=== PATIENT | male | born 1980 | race Caucasian/White ===

== ENCOUNTER → 2019-08-19 | Outpatient (CLI) | payer OTHER ==
[~2019-08-19] MED LIST: BARIUM for suspension 96% w/w (Vanilla Silq Medium Density) PO ONE; BARIUM for suspension 98% w/w (Vanilla Silq High Density) PO ONE; PANT40TA3 PO
--- NOTE | 2019-08-19 12:05 | Diagnostic Imaging Report ---
INDICATION: Dysphasia. TECHNIQUE: The patient ingested effervescent crystals as well as thin and thick barium and imaging over the esophagus was performed in multiple obliquities. A total of 1 minute and 18 seconds of fluoroscopic time was utilized. FINDINGS: The preliminary radiograph of the chest is unremarkable. The esophagus has a fairly smooth contour. No mass or stricture is identified. No gastroesophageal reflux was demonstrated. The patient does have a small sliding-type hiatal hernia. Images of the stomach are unremarkable. IMPRESSION: Small hiatal hernia. No other significant abnormality is detected. Dictated by: Dictated on workstation # [id number]
== END ==
LOC: RAD 10:40
PROVIDERS: ATTEND Surgery
DX: K44.9 Diaphragmatic hernia without obstruction or gangrene (principal)
CPT/HCPCS: 74220

== ENCOUNTER 2019-08-20 05:42 | Outpatient (CLI) | payer OTHER ==
[~2019-08-20] VITALS: Ht 187 cm; Wt 100.0 kg
[2019-08-20] MEDS ORDERED: PANT40TA3 PO (12:03)
== END 2019-08-20 12:06 | disposition home or self-care (01) ==
LOC: PREOP 05:42
PROVIDERS: ATTEND Surgery
DX: Z01.818 Encounter for other preprocedural examination (principal)

== ENCOUNTER 2020-04-03 05:40 | Outpatient (RCR) | payer OTHER ==
[~2020-04-03] VITALS: Ht 187 cm; Wt 100.0 kg
[~2020-04-03 05:40] MED LIST changes: -BARIUM for suspension 96% w/w (Vanilla Silq Medium Density) PO ONE; -BARIUM for suspension 98% w/w (Vanilla Silq High Density) PO ONE; +CETI10CA PO; +OMG1KC PO; +SUCR1TAB36 PO
== END 2020-04-03 11:33 | disposition home or self-care (01) ==
LOC: PREOP 05:40
PROVIDERS: ATTEND Surgery
DX: Z01.812 Encounter for preprocedural laboratory examination (principal); Z20.828 Contact with and (suspected) exposure to other viral communicable diseases
CPT/HCPCS: 87635

== ENCOUNTER 2020-04-07 07:45 | Day surgery (SDC) | payer OTHER ==
[~2020-04-07] VITALS: Ht 187 cm; Wt 100.0 kg
[2020-04-07] MEDS ORDERED: LACTATED RINGERS 1,000 ML IV ONE (07:48)
[2020-04-07] MEDS ORDERED: LACTATED RINGERS 1,000 ML IV STA (07:52)
[2020-04-07] MEDS ORDERED: HURRICAINE EXT TUBE (BENZOCAINE) XX PRN (08:00)
[2020-04-07 08:01] VITALS: BP 119/86
[2020-04-07] MEDS ORDERED: MIDAZOLAM 2 MG/2 ML (VERSED) VIAL ONE (08:03)
[2020-04-07] MEDS ORDERED: proPOfol 200 MG/20 ML (DIPRIVAN) VIAL IV ONE (08:03)
--- NOTE | 2020-04-07 08:05 | Progress Note-Pre Operative ---
Pre-Operative Progress Note H&P Reviewed The H&P was reviewed, patient examined and no changes noted. Date Seen by Provider: Apr 07, 2020 Time Seen by Provider: 08:05 Date H&P Reviewed: Apr 07, 2020 Time H&P Reviewed: 08:05 Pre-Operative Diagnosis: gerd, dysphagia, EE JACOB BOSS DO Apr 07, 2020 08:05
[2020-04-07] MEDS ORDERED: HURRICAINE EXT TUBE (BENZOCAINE) ONE (08:06)
[2020-04-07 08:45] VITALS: BP 112/67
--- NOTE | 2020-04-07 08:45 | Discharge Inst-Simple/Standard ---
Discharge Inst-Standard Patient Instructions/Follow Up Plan of Care/Instructions/FU: 2 weeks Aracelis Activity as Tolerated: Yes Discharge Diet: Regular Diet JACOB BOSS DO Apr 07, 2020 08:45
--- NOTE | 2020-04-07 08:47 | Progress Note-Post Operative ---
Post-Operative Progess Note Surgeon (s)/Delicatessen Department Manager (s) Surgeon JACOB BOSS DO Delicatessen Department Manager: na Pre-Operative Diagnosis gerd, dysphagia, EE Post-Operative Diagnosis hiatal hernia, erosive esophagitis Procedure & Operative Findings Date of Procedure 04/07/20 Procedure Performed/Findings egd c biopsies Anesthesia Type per therapy administrative assistant Estimated Blood Loss Estimated blood loss (mL): none Specimens/Packing Specimens Removed antrum/ge JACOB BOSS DO Apr 07, 2020 08:47
[2020-04-07 08:50] VITALS: BP 92/69
[2020-04-07 09:10] VITALS: BP 107/77
[2020-04-07 09:20] VITALS: BP 107/77
--- NOTE | 2020-04-07 09:37 | OPERATIVE REPORT ---
DATE OF SERVICE: 04/07/2020 PREOPERATIVE DIAGNOSES: Gastroesophageal reflux disease, dysphagia, and eosinophilic esophagitis. POSTOPERATIVE DIAGNOSES: Hiatal hernia and esophagitis. PROCEDURE PERFORMED: EGD with biopsy. SURGEON: Jacob Hsu DO. ANESTHESIA: Per HOSIERY KNITTER. ESTIMATED BLOOD LOSS: None. COMPLICATIONS: None. SPECIMENS: Antrum and GE junction. INDICATIONS FOR PROCEDURE: The patient is a 39-year-old male with continued GERD symptoms and dysphagia with history of eosinophilic esophagitis and erosive esophagitis. The patient understands the risks and benefits and wishes to proceed. Consent was signed in the chart. DESCRIPTION OF PROCEDURE: The patient was taken to the endoscopy suite and placed in a left lateral recumbent position. Timeout was performed. Scope was inserted in the mouth, down the esophagus, stomach and into the duodenum without difficulty. There were no polyps, masses or ulcerations in the duodenum. Scope was slowly retracted back into the stomach, where it was further insufflated. No polyps, masses or ulcerations. Biopsy of the antrum was obtained. Scope was retroflexed noting a hiatal hernia and no other pathology. Scope was then returned to its normal position, slowly withdrawn to the distal esophagus, which had signs of erosive esophagitis. Biopsy was obtained of the GE junction. Scope was then slowly retracted back until completely removed, noting no other pathology. The patient tolerated procedure well without any complications and was taken to recovery room in a stable condition. RECOMMENDATIONS: Continue on current medications. Await biopsy results. Job ID: [id number] DocumentID: [id number] Dictated Date: 04/07/2020 08:49:57 Automotive Brake Adjuster Date: 04/07/2020 09:37:25 Dictated By: JACOB HSU DO
--- NOTE | 2020-04-07 11:17 | Anesthesia-General Post-Op ---
MAC Patient Condition Mental Status/LOC: Same as Preop Cardiovascular: Satisfactory Nausea/Vomiting: Absent Respiratory: Satisfactory Pain: Controlled Complications: Absent Post Op Complications Complications None Follow Up Care/Instructions Patient Instructions None needed. Anesthesiology Discharge Order Discharge Order Patient is doing well, no complaints, stable vital signs, no apparent adverse anesthesia problems. No complications reported per nursing. BISI WHITESIDE CRNA Apr 07, 2020 11:17
== END 2020-04-07 09:20 | disposition home or self-care (01) ==
LOC: ENDO 07:45
PROVIDERS: ATTEND Surgery
DX: K20.0 Eosinophilic esophagitis (principal); K44.9 Diaphragmatic hernia without obstruction or gangrene; F17.210 Nicotine dependence, cigarettes, uncomplicated

== ENCOUNTER 2020-08-24 19:52 | Emergency (ER) | payer OTHER, BC ==
[~2020-08-24] VITALS: Ht 188 cm; Wt 95.3 kg
[~2020-08-24 19:52] MED LIST changes: -PANT40TA3 PO; +PANT40TA52 PO
[2020-08-24 20:00] VITALS: BP 149/100
[2020-08-24] MEDS ORDERED: LIDOCAINE 1% INJ 20 ML 20 ML VIAL INJ ONE (20:15)
[2020-08-24] MEDS ORDERED: AZITHROMYCIN 250 MG TAB (ZITHROMAX) PO SCH (20:15)
[2020-08-24] MEDS ORDERED: cefTRIAXone 1,000 MG/2.86 ml vial (IM ONLY) IM SCH (20:15)
[2020-08-24 20:19] LABS: BILIRUBIN,URINE NEGATIVE (NEGATIVE); CLARITY,URINE CLEAR; COLOR,URINE YELLOW; GLUCOSE, URINE (UA) NEGATIVE (NEGATIVE); KETONES,URINE NEGATIVE (NEGATIVE); LEUKOCYTE ESTERASE ,URINE NEGATIVE (NEGATIVE); NITRITE,URINE NEGATIVE (NEGATIVE); PH,URINE 6.5 (5-9); PROTEIN,URINE NEGATIVE (NEGATIVE)
--- NOTE | 2020-08-24 20:19 | ED GU-Male ---
General Chief Complaint: Male Reproductive Stated Complaint: R SIDE TESTICLE SWELLING/ABD PAIN Nursing Triage Note: PT AMBULATE TO ROOM 03 WITH C/O RIGHT SIDE TESTICLE PAIN AND LOWER ABD PAIN. PT REPORTS PAIN STARTED X1 WEEK AGO. PT REPORTS THAT THIS HAS HAPPENED A COUPLE TIMES BEFORE AND ONLY LASTED A FEW DAYS. PT STATES THAT [facility] AND HAS NOT D[facility] THIS. PT STATES WAS SEEN FOR THIS C/O IN THE PAST AT HOSPITALS IN [place] AND DOES NOT REMEMBER WHAT THE DX WAS. Source: patient Exam Limitations: no limitations History of Present Illness Date Seen by Provider: Aug 24, 2020 Time Seen by Provider: 20:15 Initial Comments To ER with right sided testicle pain that has been present for 6 days. It has gotten progressively more tender and red in the interim. No fevers or chills. He is sexually active. Timing/Duration: constant, getting worse Severity/Quality: moderate Location: scrotal Radiation: none Activities at Onset: none Prior Genitourinary Problems: none Allergies and Home Medications Allergies Coded Allergies: Penicillins (Verified Allergy, Unknown, FROM CHILDHOOD, 03/31/20) Home Medications Cetirizine HCl 10 Mg Capsule, 10 MG PO DAILY, (Reported) Tad 3 Polyunsat Fatty Acids 1,000 Mg Cap, 1,000 MG PO DAILY, (Reported) Pantoprazole Sodium 40 Mg Tablet.dr, 40 MG PO BID, (Reported) Sucralfate 1 Gm Tablet, 1 GM PO QID Prescribed by: JACOB BOSS on 08/27/19 4206 Patient Home Medication List Home Medication List Reviewed: Yes Review of Systems Review of Systems Constitutional: see HPI; No chills, No fever EENTM: see HPI Respiratory: no symptoms reported Cardiovascular: no symptoms reported Genitourinary: see HPI; denies burning, denies discharge, denies dysuria Musculoskeletal: no symptoms reported Skin: no symptoms reported Psychiatric/Neurological: No Symptoms Reported Endocrine: No Symptoms Reported Past Gdwkvdx-Axdray-Rlzkyj Hx Patient Social History Alcohol Use: Occasionally Uses Smoking Status: Current Everyday Smoker Type Used: Cigarettes 2nd Hand Smoke Exposure: Yes Recent Infectious Disease Expo: No Recent Hopitalizations: No Immunizations Up To Date Tetanus Booster (TDap): Unknown Seasonal Allergies Seasonal Allergies: Yes Past Medical History Surgeries: Yes (BMT, SKIN BIOPSY) Vasectomy Respiratory: No Currently Using CPAP: No Currently Using BIPAP: No Cardiac: No Neurological: No Sexually Transmitted Disease: No HIV/AIDS: No Genitourinary: No Gastrointestinal: Yes Gastroesophageal Reflux Musculoskeletal: No Endocrine: No HEENT: Yes (READING GLASSES) Loss of Vision: Denies Hearing Impairment: Denies Cancer: No Psychosocial: Yes PTSD Integumentary: No Blood Disorders: No Adverse Reaction/Blood Tranf: No (N/A) Physical Exam Vital Signs Vital Signs - First Documented 08/24/20 20:00 Temp 36.8 Pulse 127 Resp 20 B/P (MAP) 149/100 (116) O2 Delivery Room Air Capillary Refill : Less Than 3 Seconds Height, Weight, BMI Height: '" Weight: lbs. oz. kg; 26.00 BMI Method: General Appearance: WD/WN, no apparent distress HEENT: PERRL/EOMI, normal ENT inspection Neck: non-tender, full range of motion Cardiovascular: regular rate, rhythm, no murmur Respiratory: no respiratory distress, no accessory muscle use Gastrointestinal: normal bowel sounds, non tender, soft Male: erythema, other (Genital exam done accompanied by Ramirez LEE. The left testicle is normal in size and nontender the right testicle is about 3-4 times larger than the left and tender. The right side of the scrotum is slightly edematous but no crepitus. It is not thickened. ) Extremities: normal range of motion, non-tender Neurologic/Psychiatric: alert, normal mood/affect, oriented x 3 Skin: normal color, warm/dry Progress/Results/Core Measures Suspected Sepsis Recent Fever Within 48 Hours: No Infection Criteria Present: None New/Unexplained Altered Menta: No Sepsis Screen: No Definite Risk SIRS Temperature: Pulse: 127 Respiratory Rate: 20 Laboratory Tests 08/24/20 20:27: White Blood Count 19.5H Blood Pressure 149 /100 Mean: 116 Laboratory Tests 08/24/20 20:27: Creatinine 1.27, Platelet Count 270 Results/Orders Lab Results Laboratory Tests Test 08/24/20 20:13 08/24/20 20:27 Range/Units Urine Color YELLOW Urine Clarity CLEAR Urine pH 6.5 5-9 Urine Specific [place] 1.015 L 1.016-1.022 Urine Protein NEGATIVE NEGATIVE Urine Glucose (UA) NEGATIVE NEGATIVE Urine Ketones NEGATIVE NEGATIVE Urine Nitrite NEGATIVE NEGATIVE Urine Bilirubin NEGATIVE NEGATIVE Urine Urobilinogen 0.2 < = 1.0 MG/DL Urine Leukocyte Esterase NEGATIVE NEGATIVE Urine RBC (Auto) NEGATIVE NEGATIVE Urine RBC NONE /HPF Urine WBC 0-2 /HPF Urine Squamous Epithelial Cells 0-2 /HPF Urine Crystals NONE /LPF Urine Bacteria NEGATIVE /HPF Urine Casts PRESENT /LPF Urine Granular Casts 2-5 H /LPF Urine Mucus NEGATIVE /LPF Urine Culture Indicated NO White Blood Count 19.5 H 4.3-11.0 10^3/uL Red Blood Count 5.05 4.30-5.52 10^6/uL Hemoglobin 15.7 13.3-17.7 g/dL Hematocrit 46 40-54 % Mean Corpuscular Volume 91 80-99 fL Mean Corpuscular Hemoglobin 31 25-34 pg Mean Corpuscular Hemoglobin Concent 34 32-36 g/dL Red Cell Distribution Width 11.8 10.0-14.5 % Platelet Count 270 130-400 10^3/uL Mean Platelet Volume 9.3 9.0-12.2 fL Immature Granulocyte % (Auto) 0 % Neutrophils (%) (Auto) 78 H 42-75 % Lymphocytes (%) (Auto) 15 12-44 % Monocytes (%) (Auto) 6 0-12 % Eosinophils (%) (Auto) 2 0-10 % Basophils (%) (Auto) 0 0-10 % Neutrophils # (Auto) 15.2 H 1.8-7.8 10^3/uL Lymphocytes # (Auto) 2.8 1.0-4.0 10^3/uL Monocytes # (Auto) 1.1 H 0.0-1.0 10^3/uL Eosinophils # (Auto) 0.3 0.0-0.3 10^3/uL Basophils # (Auto) 0.1 0.0-0.1 10^3/uL Immature Granulocyte # (Auto) 0.1 0.0-0.1 10^3/uL Sodium Level 142 135-145 MMOL/L Potassium Level 3.5 L 3.6-5.0 MMOL/L Chloride Level 104 98-107 MMOL/L Carbon Dioxide Level 27 21-32 MMOL/L Anion Gap 11 5-14 MMOL/L Blood Urea Nitrogen 10 7-18 MG/DL Creatinine 1.27 0.60-1.30 MG/DL Estimat Glomerular Filtration Rate > 60 BUN/Creatinine Ratio 8 Glucose Level 112 H 70-105 MG/DL Calcium Level 9.7 8.5-10.1 MG/DL C-Reactive Protein High Sensitivity 1.80 H 0.00-0.50 MG/DL My Orders Orders - AJ PAYAN APRN Ua Culture If Indicated (08/24/20 20:13) Cbc With Automated Diff (08/24/20 20:13) Hs C Reactive Protein (08/24/20 20:13) Basic Metabolic Panel (08/24/20 20:13) Neis Wagner Dna Urine Test (08/24/20 20:13) Chlamydia Trachomatis Urine (08/24/20 20:13) Ceftriaxone For Im Use (Rocephin For Im (08/24/20 20:15) Azithromycin Tablet (Zithromax Tablet) (08/24/20 20:15) Lidocaine 1% Inj 20 Ml (Xylocaine 1% Inj (08/24/20 20:15) Manual Differential (08/24/20 20:27) Ns Iv 1000 Ml (Sodium Chloride 0.9%) (08/24/20 20:45) Blood Culture (08/24/20 20:47) Lactic Acid Analyzer (08/24/20 20:47) Medications Given in ED Current Medications Medications Dose Ordered Sig/Enoc Route Start Time Stop Time Status Last Admin Dose Admin Lidocaine HCl 2.1 ml ONCE ONCE INJ 08/24/20 20:15 08/24/20 20:16 DC 08/24/20 20:23 2.1 ML Vital Signs/I&O 08/24/20 20:00 Temp 36.8 Pulse 127 Resp 20 B/P (MAP) 149/100 (116) O2 Delivery Room Air Capillary Refill : Less Than 3 Seconds Blood Pressure Mean: 116 Departure Communication (Admissions) Given the tachycardia, leukocytosis, infection in the right testicle I did recommend admission for him. He states that he cannot stay because he has to get his kids to school in the morning. He agrees to sign out AGAINST MEDICAL ADVICE. He did receive Rocephin plus Zithromax here. I will send him home with hydrocodone, send him home with a prescription for doxycycline. Rather than an outpatient ultrasound of the scrotum tomorrow he agrees to return to the emergency room shortly after noon for reevaluation and repeat CBC. Impression Primary Impression: Epididymitis Disposition: AGAINST MEDICAL ADVICE Condition: Against Medical Advice Departure-Patient Inst. Decision time for Depature: 20:18 Referrals: NO,LOCAL PHYSICIAN (PCP/Family) Primary Care Physician Patient Instructions: Epididymitis (DC) Add. Discharge Instructions: Scrotal elevation. When you are sitting down roll a towel beneath your scrotum to elevate the scrotum. Take the antibiotics as directed this is incredibly important. Take the pain medication as directed. Ice pack to the testicles. Follow-up with Dr. Smiley from urology. Return to ER tomorrow shortly after noon to have ultrasound and repeat labs done. Scripts Doxycycline Hyclate (Doxycycline Hyclate) 100 Mg Tablet 100 MG PO BID, #20 TAB 0 Refills Prov: AJ PAYAN APRN 08/24/20 Copy Copies To 1: HUDSON SMILEY MD, PETER J APRN Aug 24, 2020 20:19
[2020-08-24 20:27] LABS: BACTERIA,URINE NEGATIVE /HPF; SQUAMOUS EPITHELIAL CELL,UR 0-2 /HPF; WBC,URINE 0-2 /HPF
[2020-08-24 20:32] LABS: BASOPHILS # (AUTO) 0.1 10^3/uL (0.0-0.1); BASOPHILS % (AUTO) 0 % (0-10); EOSINOPHILS # (AUTO) 0.3 10^3/uL (0.0-0.3); EOSINOPHILS % (AUTO) 2 % (0-10); HEMATOCRIT 46 % (40-54); HEMOGLOBIN 15.7 g/dL (13.3-17.7); LYMPHOCYTES # (AUTO) 2.8 10^3/uL (1.0-4.0); LYMPHOCYTES % (AUTO) 15 % (12-44); MEAN CORPUSCULAR HEMOGLOBIN 31 pg (25-34); MEAN CORPUSCULAR HGB CONC 34 g/dL (32-36); MEAN CORPUSCULAR VOLUME 91 fL (80-99); MEAN PLATELET VOLUME 9.3 fL (9.0-12.2); MONOCYTES # (AUTO) 1.1 10^3/uL (0.0-1.0); MONOCYTES % (AUTO) 6 % (0-12); NEUTROPHILS # (AUTO) 15.2 10^3/uL (1.8-7.8); NEUTROPHILS % (AUTO) 78 % (42-75); PLATELET COUNT 270 10^3/uL (130-400); WHITE BLOOD COUNT 19.5 10^3/uL (4.3-11.0)
[2020-08-24 20:41] LABS: CHLORIDE 104 MMOL/L (98-107); POTASSIUM 3.5 MMOL/L (3.6-5.0); SODIUM 142 MMOL/L (135-145)
[2020-08-24 20:42] LABS: CALCIUM 9.7 MG/DL (8.5-10.1)
[2020-08-24 20:43] LABS: GLUCOSE 112 MG/DL (70-105)
[2020-08-24 20:45] LABS: CARBON DIOXIDE 27 MMOL/L (21-32)
[2020-08-24] MEDS ORDERED: NS IV 1000 ML 1,000 ML IV SCH (20:45)
[2020-08-24 20:47] LABS: CREATININE SERUM 1.27 MG/DL (0.60-1.30); GFR ESTIMATED > 60
[2020-08-24 20:48] LABS: BUN/CREATININE RATIO 8
[2020-08-24 20:58] LABS: LYMPHOCYTES % (MANUAL) 15 %; MONOCYTES % (MANUAL) 3 %; NEUTROPHILS % (MANUAL) 82 %; RBC MORPH NORMAL
[2020-08-24] MEDS ORDERED: DOXY100T2 PO (20:58)
[2020-08-24] MEDS ORDERED: RX-HYDROCODONE/APAP 5/325 MG #4 TAB PK PO PRN (21:15)
== END 2020-08-24 21:08 | disposition left against medical advice (07) ==
LOC: EDUNIT# 19:52 → ER 19:54
DX: N45.1 Epididymitis (principal); K21.9 Gastro-esophageal reflux disease without esophagitis; F17.210 Nicotine dependence, cigarettes, uncomplicated; Z88.0 Allergy status to penicillin
CPT/HCPCS: 36415; 80048; 81000; 85007; 85027; 86141; 87491; 87591

== ENCOUNTER 2020-08-25 12:19 | Observation (INO) | payer OTHER, BC ==
[~2020-08-25] VITALS: Ht 188 cm; Wt 100.2 kg
[~2020-08-25 12:19] MED LIST changes: +DOXY100T2 PO
[2020-08-25] MEDS ORDERED: cefTRIAXone FOR IV USE 1,000 MG in WATER (STERILE) FOR INJECTION 10 ML IV ONE (12:30)
[2020-08-25 12:47] LABS: BASOPHILS % (AUTO) 0 % (0-10); EOSINOPHILS # (AUTO) 0.1 10^3/uL (0.0-0.3); EOSINOPHILS % (AUTO) 0 % (0-10); HEMATOCRIT 41 % (40-54); HEMOGLOBIN 14.1 g/dL (13.3-17.7); LYMPHOCYTES # (AUTO) 2.9 10^3/uL (1.0-4.0); LYMPHOCYTES % (AUTO) 17 % (12-44); MEAN CORPUSCULAR HEMOGLOBIN 32 pg (25-34); MEAN CORPUSCULAR HGB CONC 35 g/dL (32-36); MEAN CORPUSCULAR VOLUME 91 fL (80-99); MEAN PLATELET VOLUME 9.6 fL (9.0-12.2); MONOCYTES # (AUTO) 0.9 10^3/uL (0.0-1.0); MONOCYTES % (AUTO) 5 % (0-12); NEUTROPHILS # (AUTO) 13.4 10^3/uL (1.8-7.8); NEUTROPHILS % (AUTO) 77 % (42-75); PLATELET COUNT 252 10^3/uL (130-400); WHITE BLOOD COUNT 17.4 10^3/uL (4.3-11.0)
--- NOTE | 2020-08-25 12:56 | ED GU-Male ---
General Chief Complaint: - Urinary Stated Complaint: F/U SWOLLEN TESTICLES Nursing Triage Note: R testicle swelling Source: patient Exam Limitations: no limitations History of Present Illness Date Seen by Provider: Aug 25, 2020 Time Seen by Provider: 12:54 Initial Comments To ER with reports of the right testicle swelling. He was seen here last night. Testicle swelling on the right has been present for about 5 to 6 days. He had a 19,000 white count but left AMA as he had to take his kids to school this morning. He was given 1 g of Rocephin. Comes back today for recheck as instructed. Timing/Duration: constant Severity/Quality: moderate Location: scrotal Radiation: none Activities at Onset: none Prior Genitourinary Problems: none Allergies and Home Medications Allergies Coded Allergies: Penicillins (Verified Allergy, Unknown, FROM CHILDHOOD, 03/31/20) Home Medications Cetirizine HCl 10 Mg Capsule, 10 MG PO DAILY, (Reported) Doxycycline Hyclate 100 Mg Tablet, 100 MG PO BID Prescribed by: AJ PAYAN on 08/24/202057 [place] 3 Polyunsat Fatty Acids 1,000 Mg Cap, 1,000 MG PO DAILY, (Reported) Pantoprazole Sodium 40 Mg Tablet.dr, 40 MG PO BID, (Reported) Sucralfate 1 Gm Tablet, 1 GM PO QID Prescribed by: JACOB BOSS on 08/27/19 1358 Patient Home Medication List Home Medication List Reviewed: Yes Review of Systems Review of Systems Constitutional: see HPI, chills; No fever EENTM: see HPI Respiratory: no symptoms reported Cardiovascular: no symptoms reported Genitourinary: see HPI Musculoskeletal: no symptoms reported Skin: no symptoms reported Psychiatric/Neurological: No Symptoms Reported Endocrine: No Symptoms Reported Past Voozlac-Svpdix-Uhhjsz Hx Patient Social History Alcohol Use: Occasionally Uses Smoking Status: Current Everyday Smoker Type Used: Cigarettes 2nd Hand Smoke Exposure: Yes Recent Infectious Disease Expo: No Recent Hopitalizations: No Immunizations Up To Date Tetanus Booster (TDap): Unknown Seasonal Allergies Seasonal Allergies: Yes Past Medical History Surgeries: Yes (BMT, SKIN BIOPSY) Vasectomy Respiratory: No Currently Using CPAP: No Currently Using BIPAP: No Cardiac: No Neurological: No Sexually Transmitted Disease: No HIV/AIDS: No Genitourinary: No Gastrointestinal: Yes Gastroesophageal Reflux Musculoskeletal: No Endocrine: No HEENT: Yes (READING GLASSES) Loss of Vision: Denies Hearing Impairment: Denies Cancer: No Psychosocial: Yes PTSD Integumentary: No Blood Disorders: No Adverse Reaction/Blood Tranf: No (N/A) Physical Exam Vital Signs Vital Signs - First Documented 08/25/20 12:35 Temp 36.8 Pulse 108 Resp 18 B/P (MAP) 122/84 (97) O2 Delivery Room Air Capillary Refill : Less Than 3 Seconds Height, Weight, BMI Height: '" Weight: lbs. oz. kg; 27.00 BMI Method: General Appearance: WD/WN, no apparent distress Neck: non-tender, full range of motion Cardiovascular: no murmur, tachycardia Respiratory: normal breath sounds, no respiratory distress, no accessory muscle use Gastrointestinal: normal bowel sounds, soft Extremities: normal range of motion, non-tender Neurologic/Psychiatric: alert, normal mood/affect, oriented x 3 Skin: normal color, warm/dry Progress/Results/Core Measures Suspected Sepsis Recent Fever Within 48 Hours: No Infection Criteria Present: Suspected New Infection New/Unexplained Altered Menta: No Sepsis Screen: No Definite Risk SIRS Temperature: Pulse: 108 Respiratory Rate: 18 Laboratory Tests 08/25/20 12:40: White Blood Count 17.4H Blood Pressure 122 /84 Mean: 97 Laboratory Tests 08/25/20 12:40: Platelet Count 252 Results/Orders Lab Results Laboratory Tests Test 08/25/20 12:40 Range/Units White Blood Count 17.4 H 4.3-11.0 10^3/uL Red Blood Count 4.47 4.30-5.52 10^6/uL Hemoglobin 14.1 13.3-17.7 g/dL Hematocrit 41 40-54 % Mean Corpuscular Volume 91 80-99 fL Mean Corpuscular Hemoglobin 32 25-34 pg Mean Corpuscular Hemoglobin Concent 35 32-36 g/dL Red Cell Distribution Width 11.9 10.0-14.5 % Platelet Count 252 130-400 10^3/uL Mean Platelet Volume 9.6 9.0-12.2 fL Immature Granulocyte % (Auto) 1 % Neutrophils (%) (Auto) 77 H 42-75 % Lymphocytes (%) (Auto) 17 12-44 % Monocytes (%) (Auto) 5 0-12 % Eosinophils (%) (Auto) 0 0-10 % Basophils (%) (Auto) 0 0-10 % Neutrophils # (Auto) 13.4 H 1.8-7.8 10^3/uL Lymphocytes # (Auto) 2.9 1.0-4.0 10^3/uL Monocytes # (Auto) 0.9 0.0-1.0 10^3/uL Eosinophils # (Auto) 0.1 0.0-0.3 10^3/uL Basophils # (Auto) 0.0 0.0-0.1 10^3/uL Immature Granulocyte # (Auto) 0.1 0.0-0.1 10^3/uL Neutrophils % (Manual) 72 % Lymphocytes % (Manual) 12 % Monocytes % (Manual) 4 % Basophils % (Manual) 1 % Reactive Lymphocytes 11 % Blood Morphology Comment NORMAL C-Reactive Protein High Sensitivity 11.37 H 0.00-0.50 MG/DL My Orders Orders - AJ PAYAN APRN Cbc With Automated Diff (08/25/20 12:21) Ed Iv/Invasive Line Start (08/25/20 12:21) Ceftriaxone For Iv Use (Rocephin For I (08/25/20 12:30) Us Scrotum (Testicle) [id number] (08/25/20 12:21) Ns Iv 1000 Ml (Sodium Chloride 0.9%) (08/25/20 13:00) Ketorolac Injection (Toradol Injection) (08/25/20 13:00) Ceftriaxone For Iv Use (Rocephin For I (08/25/20 13:00) Manual Differential (08/25/20 12:40) Hs C Reactive Protein (08/25/20 12:56) Levofloxacin Tablet (Levaquin Tablet) (08/25/20 13:45) Medications Given in ED Current Medications Medications Dose Ordered Sig/Enoc Route Start Time Stop Time Status Last Admin Dose Admin Ceftriaxone Sodium 2000 mg/ Sterile Water 20 ml @ 240 mls/hr ONCE ONCE IV 08/25/20 13:00 08/25/20 13:04 DC 08/25/20 13:35 240 MLS/HR Ketorolac Tromethamine 15 mg ONCE ONCE IVP 08/25/20 13:00 08/25/20 13:01 DC 08/25/20 12:51 15 MG Vital Signs/I&O 08/25/20 12:35 Temp 36.8 Pulse 108 Resp 18 B/P (MAP) 122/84 (97) O2 Delivery Room Air Capillary Refill : Less Than 3 Seconds Blood Pressure Mean: 97 Diagnostic Imaging Diagonstic Imaging: Ultrasound Comments NAME: BROOKS HARDY [facility] REC#: [id number] PT STATUS: REG ER : 1980 PHYSICIAN: AJ PAYAN APRN ADMIT DATE: 08/25/20/ER Draft Date of Exam:08/25/20 US SCROTUM (Testicle) [id number] PROCEDURE: US Scrotum. TECHNIQUE: Multiple real-time grayscale images were obtained over the scrotum in various projections bilaterally. INDICATION: Right scrotal pain, symptoms of one week's duration. FINDINGS: The right-sided epididymis is prominent somewhat hypoechoic and abnormally hypervascularized. The right testicular parenchyma appeared normal on grayscale imaging but shows abnormal elevated color Doppler blood flow. There is a small simple right-sided hydrocele without evidence for pyocele or abscess. The left scrotal contents normal aside from a benign epididymal head cyst. IMPRESSION: Findings most suggestive of right-sided epididymoorchitis with a likely reactive small simple right hydrocele. Dictated on workstation # [id number] Dict: 08/25/20 1321 Trans: 08/25/20 1326 [id number] Interpreted by: ANUSHA SUGGS Electronically signed by: Departure Communication (Admissions) Family Conversation Spoke with Dr. Garcia, recommends admission but if the patient does not want to be admitted then the next recommendation would be to go home with scrotal support, ice pack, bedrest, continue the doxycycline. Relayed these recommendations to the patient. He is going to visit with his and discuss whether he wants to stay or go home. [facility]. his white count is down today from 19 yesterday but his CRP is up significantly. He denies any symptomatic improvement. 1420-okay with his and agrees to stay in the hospital. Urine gonorrhea chlamydia test pending from yesterday. Spoke With Dr. Blanchard, he agrees to admit Impression Primary Impression: Epididymitis Additional Impression: Sepsis Disposition: ADMITTED INPATIENT Condition: Stable Admissions Decision to Admit Reason: Admit from ER (General) Decision to Admit/Date: Aug 25, 2020 Time/Decision to Admit Time: 14:26 Departure-Patient Inst. Referrals: NO,LOCAL PHYSICIAN (PCP/Family) Primary Care Physician AJ PAYAN APRN Aug 25, 2020 12:55
[2020-08-25] MEDS ORDERED: cefTRIAXone FOR IV USE 2,000 MG in WATER (STERILE) FOR INJECTION 20 ML IV ONE (13:00)
[2020-08-25] MEDS ORDERED: KETOROLAC 30 MG/ML VIAL IVP ONE (13:00)
[2020-08-25] MEDS ORDERED: NS IV 1000 ML 1,000 ML IV SCH (13:00)
--- NOTE | 2020-08-25 13:07 | NUR ---
REPORT GIVEN TO ALEISHA
--- NOTE | 2020-08-25 13:10 | NUR ---
report recieved by Ana LEE
--- NOTE | 2020-08-25 13:26 | Diagnostic Imaging Report ---
PROCEDURE: US Scrotum. TECHNIQUE: Multiple real-time grayscale images were obtained over the scrotum in various projections bilaterally. INDICATION: Right scrotal pain, symptoms of one week's duration. FINDINGS: The right-sided epididymis is prominent somewhat hypoechoic and abnormally hypervascularized. The right testicular parenchyma appeared normal on grayscale imaging but shows abnormal elevated color Doppler blood flow. There is a small simple right-sided hydrocele without evidence for pyocele or abscess. The left scrotal contents normal aside from a benign epididymal head cyst. IMPRESSION: Findings most suggestive of right-sided epididymoorchitis with a likely reactive small simple right hydrocele. Dictated by: Dictated on workstation # [id number]
[2020-08-25 13:45] LABS: BASOPHILS % (MANUAL) 1 %; LYMPHOCYTES % (MANUAL) 12 %; MONOCYTES % (MANUAL) 4 %; NEUTROPHILS % (MANUAL) 72 %; RBC MORPH NORMAL; REACTIVE LYMPHOCYTES 11 %
[2020-08-25] MEDS ORDERED: LEVOFLOXACIN 750 MG TAB (LEVAQUIN) PO ONE (13:45)
--- NOTE | 2020-08-25 14:58 | NUR ---
report given to Maciel LEE
--- NOTE | 2020-08-25 14:59 | NUR ---
pt denies need for anything at this time
[2020-08-25 15:30] VITALS: BP_SYST 118; BP_SYST 133; BP_DIAS 74; BP_DIAS 81
[2020-08-25] MEDS ORDERED: HYDROcodone/APAP 5 MG/325 MG (LORTAB) TAB PO PRN (16:00)
[2020-08-25] MEDS ORDERED: ENOXAPARIN 40 MG/0.4 ML (LOVENOX) SYR SC SCH (16:15)
[2020-08-25] MEDS ORDERED: ACETAMINOPHEN 325 MG TABLET PO PRN (16:15)
[2020-08-25] MEDS ORDERED: BISACODYL 10 MG SUPP (DULCOLAX) PR PRN (16:15)
[2020-08-25] MEDS ORDERED: MELATONIN 3 MG TABLET PO PRN (16:15)
[2020-08-25] MEDS ORDERED: cefTRIAXone FOR IV USE 2,000 MG in WATER (STERILE) FOR INJECTION 20 ML IV SCH (16:15)
[2020-08-25] MEDS ORDERED: polyethylene glycoL POWDER 17 GM (MIRALAX) PACK PO PRN (16:15)
[2020-08-25] MEDS ORDERED: ONDANSETRON 4 MG (ZOFRAN) ORAL DISSOLVE TAB PO PRN (16:15)
[2020-08-25] MEDS ORDERED: diphenhydrAMINE 25 MG TAB (BENADRYL) PO PRN (16:15)
[2020-08-25] MEDS ORDERED: ONDANSETRON 4 MG/2 ML (SDV) Z0FRAN IV PRN (16:15)
[2020-08-25] MEDS ORDERED: ANTACID SUSP 30 ML UDC (MYLANTA) PO PRN (16:15)
[2020-08-25] MEDS ORDERED: CATHETER FLUSH 10 ML SYR IV PRN (16:30)
[2020-08-25] MEDS: LACTATED RINGERS 1,000 ML IV SCH (16:52)
[2020-08-25 20:07] VITALS: BP 116/80
[2020-08-25] MEDS ORDERED: CETIRIZINE 10 MG TAB PO SCH (21:00)
[2020-08-25] MEDS: SENNOSIDES 8.6 MG (SENOKOT) TAB PO SCH (21:10)
[2020-08-25] MEDS: DOCUSATE SODIUM 100 MG (COLACE) CAP PO SCH (21:10)
[2020-08-26] VITALS: BP 108/67
[2020-08-26] MEDS: LACTATED RINGERS 1,000 ML IV SCH ×3 (00:56→09:02)
[2020-08-26 04:00] VITALS: BP 120/85
[2020-08-26 06:15] LABS: BASOPHILS % (AUTO) 1 % (0-10); EOSINOPHILS # (AUTO) 0.3 10^3/uL (0.0-0.3); EOSINOPHILS % (AUTO) 4 % (0-10); HEMATOCRIT 35 % (40-54); HEMOGLOBIN 12.2 g/dL (13.3-17.7); LYMPHOCYTES # (AUTO) 2.6 10^3/uL (1.0-4.0); LYMPHOCYTES % (AUTO) 32 % (12-44); MEAN CORPUSCULAR HEMOGLOBIN 31 pg (25-34); MEAN CORPUSCULAR HGB CONC 35 g/dL (32-36); MEAN CORPUSCULAR VOLUME 91 fL (80-99); MEAN PLATELET VOLUME 9.5 fL (9.0-12.2); MONOCYTES # (AUTO) 0.6 10^3/uL (0.0-1.0); MONOCYTES % (AUTO) 8 % (0-12); NEUTROPHILS # (AUTO) 4.5 10^3/uL (1.8-7.8); NEUTROPHILS % (AUTO) 56 % (42-75); PLATELET COUNT 218 10^3/uL (130-400); WHITE BLOOD COUNT 8.1 10^3/uL (4.3-11.0)
[2020-08-26 06:24] LABS: ALBUMIN 3.3 GM/DL (3.2-4.5); CHLORIDE 109 MMOL/L (98-107); POTASSIUM 3.9 MMOL/L (3.6-5.0); SODIUM 140 MMOL/L (135-145)
[2020-08-26 06:26] LABS: CALCIUM 8.3 MG/DL (8.5-10.1)
[2020-08-26 06:27] LABS: GLUCOSE 102 MG/DL (70-105); TOTAL PROTEIN 5.9 GM/DL (6.4-8.2)
[2020-08-26 06:28] LABS: CARBON DIOXIDE 24 MMOL/L (21-32)
[2020-08-26 06:29] LABS: BILIRUBIN,TOTAL 0.4 MG/DL (0.1-1.0)
[2020-08-26 06:30] LABS: ALKALINE PHOSPHATASE 70 U/L (40-136); CREATININE SERUM 1.11 MG/DL (0.60-1.30); GFR ESTIMATED > 60
[2020-08-26 06:31] LABS: BUN/CREATININE RATIO 10
[2020-08-26 06:33] LABS: ALANINE AMINOTRANSFERASE 41 U/L (0-55)
[2020-08-26 08:00] VITALS: BP 122/79
[2020-08-26] MEDS: SENNOSIDES 8.6 MG (SENOKOT) TAB PO SCH (08:12)
[2020-08-26] MEDS: DOCUSATE SODIUM 100 MG (COLACE) CAP PO SCH (08:12)
--- NOTE | 2020-08-26 10:05 | NUR ---
DR. SMILEY NOTIFIED OF CONSULT.
--- NOTE | 2020-08-26 10:33 | Discharge Summary ---
Discharge Summary Hospital Course Was the Problem List Reviewed?: Yes Problems/Dx: (1) Sepsis Status: Resolved (2) Acute epididymo-orchitis Status: Acute Hospital Course Date of Admission: Aug 25, 2020 at 14:21 Admission Diagnosis : Acute epididymo-orchitis Family Physician/Provider: Sweta,Local Physician Date of Discharge: 08/26/20 Discharge Diagnosis: Acute epididymo-orchitis Hospital Course: Oliver Miller is a 40-year-old male who presented with scrotal pain and swelling and was admitted with sepsis due to acute epididymo-orchitis. He was started on IV Rocephin. Urology was consulted and assisted with his care. He improved and was transitioned to oral doxycycline for which he will complete a two week course. He will follow-up with Dr. Smiley as scheduled. Labs and Pending Lab Test: Laboratory Tests 08/25/20 12:40: White Blood Count 17.4H, Red Blood Count 4.47, Hemoglobin 14.1, Hematocrit 41, Mean Corpuscular Volume 91, Mean Corpuscular Hemoglobin 32, Mean Corpuscular Hemoglobin Concent 35, Red Cell Distribution Width 11.9, Platelet Count 252, Mean Platelet Volume 9.6, Immature Granulocyte % (Auto) 1, Neutrophils (%) (Auto) 77H, Lymphocytes (%) (Auto) 17, Monocytes (%) (Auto) 5, Eosinophils (%) (Auto) 0, Basophils (%) (Auto) 0, Neutrophils # (Auto) 13.4H, Lymphocytes # (Auto) 2.9, Monocytes # (Auto) 0.9, Eosinophils # (Auto) 0.1, Basophils # (Auto) 0.0, Immature Granulocyte # (Auto) 0.1, Neutrophils % (Manual) 72, Lymphocytes % (Manual) 12, Monocytes % (Manual) 4, Basophils % (Manual) 1, Reactive Lymphocytes 11, Blood Morphology Comment NORMAL, C-Reactive Protein High Sensitivity 11.37H 08/26/20 05:50: White Blood Count 8.1, Red Blood Count 3.89L, Hemoglobin 12.2L, Hematocrit 35L, Mean Corpuscular Volume 91, Mean Corpuscular Hemoglobin 31, Mean Corpuscular Hemoglobin Concent 35, Red Cell Distribution Width 11.9, Platelet Count 218, Mean Platelet Volume 9.5, Immature Granulocyte % (Auto) 0, Neutrophils (%) (Auto) 56, Lymphocytes (%) (Auto) 32, Monocytes (%) (Auto) 8, Eosinophils (%) ( Auto) 4, Basophils (%) (Auto) 1, Neutrophils # (Auto) 4.5, Lymphocytes # (Auto) 2.6, Monocytes # (Auto) 0.6, Eosinophils # (Auto) 0.3, Basophils # (Auto) 0.0, Immature Granulocyte # (Auto) 0.0, Sodium Level 140, Potassium Level 3.9, Chloride Level 109H, Carbon Dioxide Level 24, Anion Gap 7, Blood Urea Nitrogen 11, Creatinine 1.11, Estimat Glomerular Filtration Rate > 60, BUN/Creatinine Ratio 10, Glucose Level 102, Calcium Level 8.3L, Corrected Calcium 8.9, Total Bilirubin 0.4, Aspartate Amino Transf (AST/SGOT) 20, Alanine Aminotransferase (ALT/SGPT) 41, Alkaline Phosphatase 70, Total Protein 5.9L, Albumin 3.3 Home Meds Active Doxycycline Hyclate 100 Mg Tablet 100 Mg PO BID Carafate (Sucralfate) 1 Gm Tablet 1 Gm PO QID Reported Fish Oil 1,000 mg Capsule ([place] 3 Polyunsat Fatty Acids) 1,000 Mg Cap 1,000 Mg PO DAILY Zyrtec (Cetirizine HCl) 10 Mg Capsule 10 Mg PO DAILY Pantoprazole Sodium 40 Mg Tablet. 40 Mg PO BID Assessment/Pt Instructions Take medications as prescribed. Complete her course of antibiotics even if you're feeling better. Follow-up with Dr. Smiley. Return with worsening pain, swelling, or if you feel like you're getting worse. Discharge Planning: <30 minutes discharge planning Discharge Instructions Discharge Diet: No Restrictions Activity as Tolerated: Yes Consultations Urology Discharge Physical Examination Vital Signs Vital Signs Date Time Temp Pulse Resp B/P (MAP) Pulse Ox O2 Delivery O2 Flow Rate FiO2 08/26/20 08:00 36.4 74 16 122/79 (93) 97 Room Air 08/26/20 07:25 0.00 General Appearance: No Apparent Distress, WD/WN HEENT: PERRL/EOMI, Pharynx Normal Respiratory: Lungs Clear, Normal Breath Sounds, No Respiratory Distress Cardiovascular: Regular Rate, Rhythm, No Edema, No Murmur Gastrointestinal: Normal Bowel Sounds, Soft, Tenderness (suprapubic) Extremity: Normal Inspection, Non Tender, No Pedal Edema Skin: Normal Color, Warm/Dry, Other (right testicle swollen, tender) Neurologic/Psychiatric: Alert, Oriented x3, No Motor/Sensory Deficits, Normal Mood/Affect Allergies: Coded Allergies: Penicillins (Verified Allergy, Unknown, FROM CHILDHOOD, 03/31/20) Copy Copies To 1: HUDSON SMILEY MD Discharge Summary Date of Admission Aug 25, 2020 at 14:21 Date of Discharge Discharge Date: Aug 26, 2020 Discharge Time: 10:31 Admission Diagnosis Sepsis due to acute epididymo-orchitis Consults/Procedures Consulations Urology Discharge Diagnosis (1) Sepsis Status: Resolved (2) Acute epididymo-orchitis Status: Acute JANAK RAMIREZ MD Aug 26, 2020 10:32
--- NOTE | 2020-08-26 11:23 | CONSULTATION REPORT ---
DATE OF SERVICE: 08/26/2020 ATTENDING PHYSICIAN: Dr. Blanchard. SUMMARY: After reviewing the patient's records, interviewing him and examining him and reviewing his x-rays, this is a 40-year-old white man, who presented to the emergency room twice complaining of pain and swelling in the right testicle. Yesterday, the emergency room called me. The patient was getting worse according to him. Ultrasound of the scrotum confirmed a right epididymo-orchitis, no abscess formation. His CBC at that time, white count was 17.4. His chemistry was normal except the C-reactive protein was higher than the day before at 11.37. The patient was given the choice was preference of admission for observation, he agreed. He was subsequently admitted on IV antibiotic and bed rest. Today, he is getting better. He is afebrile. His white count is down to 8.1. He is feeling better. Examination revealed the phallus . Left testicle in epididymis down and normal. The right side, the epididymis is kind of tender and firm and enlarged, but no scrotal edema. No problem for the testicle. No evidence of an abscess formation. IMPRESSION: Right epididymo-orchitis stable -- improving. RECOMMENDATIONS: May go home, but has to have complete rest for 48 hours and then gradually build his activity. Scrotal support for a week. Prescription for Vibramycin 100 mg b.i.d. for 10 days. Follow up in the office with me in 2 weeks. Come back or call or come to the emergency room with any problems. Job ID: [id number] DocumentID: [id number] Dictated Date: 08/26/2020 10:47:26 Veneer Splicer Date: 08/26/2020 11:22:54 Dictated By: HUDSON SMILEY MD
[2020-08-26] MEDS ORDERED: cefTRIAXone 1,000 MG/SWFI 10 ML IV PUSH IV SCH ×2 (13:00)
== END 2020-08-26 11:10 | disposition home or self-care (01) ==
LOC: EDUNIT# 12:19 → ER 12:20 → 4TH 14:21
PROVIDERS: ADMIT Internal Medicine; ATTEND Internal Medicine
DX: A41.9 Sepsis, unspecified organism (principal); N45.3 Epididymo-orchitis; K21.9 Gastro-esophageal reflux disease without esophagitis; F43.10 Post-traumatic stress disorder, unspecified; F17.210 Nicotine dependence, cigarettes, uncomplicated; Z79.899 Other long term (current) drug therapy; Z88.0 Allergy status to penicillin
CPT/HCPCS: 36415; 76870; 80053; 85007; 85025; 85027; 86141; G0378

== ENCOUNTER 2021-01-01 22:16 | Emergency (ER) | payer OTHER, BC ==
[~2021-01-01] VITALS: Ht 187 cm; Wt 99.7 kg
[2021-01-01] MEDS ORDERED: KETOROLAC 30 MG/ML VIAL IVP STA (22:55)
[2021-01-01] MEDS ORDERED: LACTATED RINGERS 1,000 ML IV ONE (23:00)
[2021-01-01] MEDS ORDERED: ONDANSETRON 4 MG/2 ML (SDV) Z0FRAN IVP ONE (23:00)
[2021-01-01 23:03] LABS: BASOPHILS # (AUTO) 0.1 10^3/uL (0.0-0.1); BASOPHILS % (AUTO) 1 % (0-10); EOSINOPHILS # (AUTO) 0.4 10^3/uL (0.0-0.3); EOSINOPHILS % (AUTO) 2 % (0-10); HEMATOCRIT 46 % (40-54); HEMOGLOBIN 16.2 g/dL (13.3-17.7); LYMPHOCYTES # (AUTO) 4.8 10^3/uL (1.0-4.0); LYMPHOCYTES % (AUTO) 30 % (12-44); MEAN CORPUSCULAR HEMOGLOBIN 32 pg (25-34); MEAN CORPUSCULAR HGB CONC 35 g/dL (32-36); MEAN CORPUSCULAR VOLUME 90 fL (80-99); MEAN PLATELET VOLUME 9.6 fL (9.0-12.2); MONOCYTES # (AUTO) 1.1 10^3/uL (0.0-1.0); MONOCYTES % (AUTO) 7 % (0-12); NEUTROPHILS # (AUTO) 9.7 10^3/uL (1.8-7.8); NEUTROPHILS % (AUTO) 60 % (42-75); PLATELET COUNT 287 10^3/uL (130-400); WHITE BLOOD COUNT 16.1 10^3/uL (4.3-11.0)
[2021-01-01 23:11] LABS: ALBUMIN 4.2 GM/DL (3.2-4.5); CHLORIDE 103 MMOL/L (98-107); POTASSIUM 3.4 MMOL/L (3.6-5.0); SODIUM 139 MMOL/L (135-145)
[2021-01-01 23:12] LABS: AMYLASE 43 U/L (25-125); CALCIUM 8.9 MG/DL (8.5-10.1)
[2021-01-01 23:13] LABS: GLUCOSE 130 MG/DL (70-105); TOTAL PROTEIN 6.6 GM/DL (6.4-8.2)
[2021-01-01 23:14] LABS: CARBON DIOXIDE 24 MMOL/L (21-32)
[2021-01-01 23:15] LABS: BILIRUBIN,TOTAL 0.6 MG/DL (0.1-1.0)
[2021-01-01 23:16] LABS: BAND NEUTROPHILS 0 %; BASOPHILS % (MANUAL) 0 %; EOSINOPHILS % (MANUAL) 4 %; LYMPHOCYTES % (MANUAL) 17 %; MONOCYTES % (MANUAL) 4 %; NEUTROPHILS % (MANUAL) 66 %; RBC MORPH NORMAL; REACTIVE LYMPHOCYTES 9 %
[2021-01-01 23:17] LABS: ALKALINE PHOSPHATASE 75 U/L (40-136); CREATININE SERUM 1.59 MG/DL (0.60-1.30); GFR ESTIMATED 49
[2021-01-01 23:18] LABS: BUN/CREATININE RATIO 5
[2021-01-01 23:20] LABS: ALANINE AMINOTRANSFERASE 33 U/L (0-55)
[2021-01-01 23:21] LABS: LIPASE 28 U/L (8-78)
[2021-01-01 23:29] LABS: VALPROIC ACID < 2.0 UG/ML (50.0-100.0)
[2021-01-02] MEDS ORDERED: RX-ONDANSETRON 4 MG ODT (ZOFRAN) PPK #4 PO STA (00:40)
[2021-01-02] MEDS ORDERED: TMSL.4C PO (00:44)
[2021-01-02] MEDS ORDERED: ONDA8TAB13 PO (00:44)
[2021-01-02] MEDS ORDERED: CIPR500T5 PO (00:44)
[2021-01-02] MEDS ORDERED: KETO10TA PO (00:44)
[2021-01-02] MEDS ORDERED: ACHD5005 PO (00:44)
--- NOTE | 2021-01-02 00:44 | ED Back Pain ---
General Stated Complaint: LOWER BACK PAIN,ABD PAIN Source of Information: Patient History of Present Illness Date Seen by Provider: January 01, 2021 Time Seen by Provider: 00:28 Initial Comments PT ARRIVES VIA POV FROM HOME C/O SUDDEN ONSET OF LEFT FLANK PAIN RADIATING TO SUPRAPUBIC AREA AT 2000 TONIGHT C/O NAUSEA AND DRY HEAVES NO FEVER HAS URGE TO URINATE BUT IS UNABLE TO VOID NO HISTORY OF SIMILAR HAS NOT TAKEN ANYTHING FOR PAIN Other Comments PCP: [facility] UROLOGIST: DR. SMILEY Allergies and Home Medications Allergies Coded Allergies: Penicillins (Verified Allergy, Unknown, FROM CHILDHOOD, 03/31/20) Home Medications Cetirizine HCl 10 Mg Capsule, 10 MG PO DAILY, (Reported) Ciprofloxacin HCl 500 Mg Tablet, 500 MG PO BID Prescribed by: MIRELLA MCKEON on 01/02/2143 Doxycycline Hyclate 100 Mg Tablet, 100 MG PO BID Prescribed by: AJ PAYAN on 08/24/202057 Hydrocodone/Acetaminophen 1 Each Tablet, 1 EACH PO Q4-6 HOURS PRN for PAIN Prescribed by: MIRELLA MCKEON on 01/02/2143 Ketorolac Tromethamine 10 Mg Tablet, 10 MG PO Q6H Prescribed by: MIRELLA MCKOEN on 01/02/2143 [place] 3 Polyunsat Fatty Acids 1,000 Mg Cap, 1,000 MG PO DAILY, (Reported) Ondansetron 8 Mg Tab.rapdis, 8 MG PO Q6H Prescribed by: MIRELLA MCKEON on 01/02/2143 Pantoprazole Sodium 40 Mg Tablet.dr, 40 MG PO BID, (Reported) Sucralfate 1 Gm Tablet, 1 GM PO QID Prescribed by: JACOB BOSS on 08/27/19 1358 Tamsulosin HCl 0.4 Mg Cap, 0.4 MG PO DAILY Prescribed by: MIRELLA MCKEON on 01/02/2143 Patient Home Medication List Home Medication List Reviewed: Yes Review of Systems Constitutional: no symptoms reported Respiratory: no symptoms reported Cardiovascular: no symptoms reported Gastrointestinal: see HPI, abdominal pain, nausea Genitourinary: see HPI Musculoskeletal: see HPI, back pain Skin: no symptoms reported Psychiatric/Neurological: No Symptoms Reported Past Zrftmav-Aawsmk-Fbzteg Hx Past Med/Social Hx: Reviewed and Corrections made Patient Social History Alcohol Use: Rarely Uses Drug of Choice: DENIES Smoking Status: Current Everyday Smoker Type Used: Cigarettes 2nd Hand Smoke Exposure: Yes Recent Hopitalizations: No Immunizations Up To Date Tetanus Booster (TDap): Unknown Seasonal Allergies Seasonal Allergies: Yes Past Medical History Surgeries: Yes (BMT, SKIN BIOPSY) Ear Surgery, Vasectomy Respiratory: No Currently Using CPAP: No Currently Using BIPAP: No Cardiac: No Neurological: No Sexually Transmitted Disease: No HIV/AIDS: No Genitourinary: Yes (LOW TESTOSTERONE) Gastrointestinal: Yes Gastroesophageal Reflux Musculoskeletal: No Endocrine: Yes (LOW TESTOSTERONE) HEENT: Yes (READING GLASSES; S/P BMT'S) Chronic Ear Infection Loss of Vision: Denies Hearing Impairment: Denies Cancer: No Psychosocial: Yes PTSD Integumentary: No Blood Disorders: No Adverse Reaction/Blood Tranf: No (N/A) Physical Exam Vital Signs Vital Signs - First Documented 01/01/21 22:50 Temp 35.5 Pulse 85 Resp 18 B/P (MAP) 144/100 (115) Pulse Ox 97 O2 Delivery Room Air Capillary Refill : Height, Weight, BMI Height: '" Weight: lbs. oz. kg; 26.96 BMI Method: General Appearance: WD/WN, Anxious, Other (MOANING, WALKS SLOWLY AND BENT AT WAIST, HOLDING LOWER ABDOMEN. BAREFOOT) Cardiovascular: Regular Rate, Rhythm, No Murmur Respiratory: Normal Breath Sounds, No Accessory Muscle Use, No Respiratory Distress Gastrointestinal: Normal Bowel Sounds, No Organomegaly, No Pulsatile Mass, Soft, Tenderness (SUPRAPUBIC, LLQ AND LEFT FLANK TENDERNESS) Back: CVA Tenderness (L) Extremity: Normal Inspection Neurologic/Psychiatric: Alert, Oriented x3, No Motor/Sensory Deficits, second hand paper machine II- XII Norm as Tested Skin: Normal Color, Warm/Dry; No Rash Progress/Results/Core Measures Results/Orders Lab Results Laboratory Tests Test 01/01/21 22:58 01/02/21 01:30 Range/Units White Blood Count 16.1 H 4.3-11.0 10^3/uL Red Blood Count 5.07 4.30-5.52 10^6/uL Hemoglobin 16.2 13.3-17.7 g/dL Hematocrit 46 40-54 % Mean Corpuscular Volume 90 80-99 fL Mean Corpuscular Hemoglobin 32 25-34 pg Mean Corpuscular Hemoglobin Concent 35 32-36 g/dL Red Cell Distribution Width 12.0 10.0-14.5 % Platelet Count 287 130-400 10^3/uL Mean Platelet Volume 9.6 9.0-12.2 fL Immature Granulocyte % (Auto) 0 % Neutrophils (%) (Auto) 60 42-75 % Lymphocytes (%) (Auto) 30 12-44 % Monocytes (%) (Auto) 7 0-12 % Eosinophils (%) (Auto) 2 0-10 % Basophils (%) (Auto) 1 0-10 % Neutrophils # (Auto) 9.7 H 1.8-7.8 10^3/uL Lymphocytes # (Auto) 4.8 H 1.0-4.0 10^3/uL Monocytes # (Auto) 1.1 H 0.0-1.0 10^3/uL Eosinophils # (Auto) 0.4 H 0.0-0.3 10^3/uL Basophils # (Auto) 0.1 0.0-0.1 10^3/uL Immature Granulocyte # (Auto) 0.1 0.0-0.1 10^3/uL Neutrophils % (Manual) 66 % Lymphocytes % (Manual) 17 % Monocytes % (Manual) 4 % Eosinophils % (Manual) 4 % Basophils % (Manual) 0 % Band Neutrophils 0 % Reactive Lymphocytes 9 % Blood Morphology Comment NORMAL Sodium Level 139 135-145 MMOL/L Potassium Level 3.4 L 3.6-5.0 MMOL/L Chloride Level 103 98-107 MMOL/L Carbon Dioxide Level 24 21-32 MMOL/L Anion Gap 12 5-14 MMOL/L Blood Urea Nitrogen 8 7-18 MG/DL Creatinine 1.59 H 0.60-1.30 MG/DL Estimat Glomerular Filtration Rate 49 BUN/Creatinine Ratio 5 Glucose Level 130 H 70-105 MG/DL Calcium Level 8.9 8.5-10.1 MG/DL Corrected Calcium 8.7 8.5-10.1 MG/DL Total Bilirubin 0.6 0.1-1.0 MG/DL Aspartate Amino Transf (AST/SGOT) 20 5-34 U/L Alanine Aminotransferase (ALT/SGPT) 33 0-55 U/L Alkaline Phosphatase 75 40-136 U/L Total Protein 6.6 6.4-8.2 GM/DL Albumin 4.2 3.2-4.5 GM/DL Amylase Level 43 25-125 U/L Lipase 28 8-78 U/L Valproic Acid (Depakene) Level < 2.0 L 50.0-100.0 UG/ML Serum Alcohol < 10 <10 MG/DL Urine Color YELLOW Urine Clarity CLEAR Urine pH 6.0 5-9 Urine Specific [place] 1.025 H 1.016-1.022 Urine Protein NEGATIVE NEGATIVE Urine Glucose (UA) NEGATIVE NEGATIVE Urine Ketones NEGATIVE NEGATIVE Urine Nitrite NEGATIVE NEGATIVE Urine Bilirubin NEGATIVE NEGATIVE Urine Urobilinogen 0.2 < = 1.0 MG/DL Urine Leukocyte Esterase TRACE H NEGATIVE Urine RBC (Auto) 2+ H NEGATIVE Urine RBC 5-10 H /HPF Urine WBC RARE /HPF Urine Squamous Epithelial Cells 0-2 /HPF Urine Crystals NONE /LPF Urine Bacteria NEGATIVE /HPF Urine Casts NONE /LPF Urine Mucus MODERATE H /LPF Urine Culture Indicated NO Urine Opiates Screen NEGATIVE NEGATIVE Urine Oxycodone Screen NEGATIVE NEGATIVE Urine Methadone Screen NEGATIVE NEGATIVE Urine Propoxyphene Screen NEGATIVE NEGATIVE Urine Barbiturates Screen NEGATIVE NEGATIVE Ur Tricyclic Antidepressants Screen NEGATIVE NEGATIVE Urine Phencyclidine Screen NEGATIVE NEGATIVE Urine Amphetamines Screen NEGATIVE NEGATIVE Urine Methamphetamines Screen NEGATIVE NEGATIVE Urine Benzodiazepines Screen NEGATIVE NEGATIVE Urine Cocaine Screen NEGATIVE NEGATIVE Urine Cannabinoids Screen NEGATIVE NEGATIVE My Orders Orders - MIRELLA MCKEON DO Ed Iv/Invasive Line Start (01/01/21 22:55) Monitor-Rhythm Ecg Trace Only (01/01/21 22:55) Alcohol (01/01/21 22:55) Amylase (01/01/21 22:55) Cbc With Automated Diff (01/01/21 22:55) Comprehensive Metabolic Panel (01/01/21 22:55) Lipase (01/01/21 22:55) Valproic Acid (01/01/21 22:55) Ketorolac Injection (Toradol Injection) (01/01/21 22:55) Ed Iv/Invasive Line Start (01/01/21 22:55) Lactated Ringers (Lr 1000 Ml Iv Solution (01/01/21 23:00) Ondansetron Injection (Zofran Injectio (01/01/21 23:00) Manual Differential (01/01/21 22:58) Ct Abd/Pelvis Wo(Kidney Stone) (01/02/21 00:01) Abdomen/Kub 1[place] (01/02/21 00:01) Ed Iv/Invasive Line Start (01/02/21 00:32) Lactated Ringers (Lr 1000 Ml Iv Solution (01/02/21 00:45) Tamsulosin Capsule (Flomax Capsule) (01/02/21 00:45) Rx-Ondansetron Po (Rx-Zofran Po) (01/02/21 00:40) Rx-Hydrocodone/Apap 5-325 Mg (Rx-Vicodin (01/02/21 00:45) Drug Screen Stat (Urine) (01/02/21 01:34) Ua Culture If Indicated (01/02/21 01:34) Fentanyl Inj (Sublimaze Injection) (01/02/21 01:34) Medications Given in ED Vital Signs/I&O 01/01/21 01/02/21 22:50 02:08 Temp 35.5 36.9 Pulse 85 75 Resp 18 20 B/P (MAP) 144/100 (115) 109/78 Pulse Ox 97 96 O2 Delivery Room Air Room Air Progress Progress Note : Progress Note GIVEN IV FLUIDS, ZOFRAN AND TORADOL WITH SIGNIFICANT IMPROVEMENT IN SYMPTOMS PAIN STARTING TO RETURN, GIVEN FENTANYL WITH MUCH IMPROVEMENT IN SYMPTOMS PT ABLE TO VOID AFTER 1500 FLUIDS Diagnostic Imaging Comments KUB--NO ACUTE PROCESS, PENDING RADIOLOGIST REVIEW CT ABDOMEN/PELVIS--1-2 MM STONE AT LEFT DISTAL URETER, NEAR LEFT URETERAL ORIFICE WITH MILD LEFT HYDROURETER AND HYDRONEPHROSIS--PER [facility] VIA FAX AT 0040 Reviewed: Reviewed by Me Departure Impression Primary Impression: Calculus of distal left ureter Disposition: HOME, SELF-CARE Condition: Improved Departure-Patient Inst. Decision time for Depature: 00:40 Referrals: NO,LOCAL PHYSICIAN (PCP) Primary Care Physician HUDSON SMILEY MD Patient Instructions: Kidney Stones (DC), How to Strain Your Urine Add. Discharge Instructions: STRAIN ALL URINE--RETURN ANY STONES TO DR'S OFFICE LOTS OF CLEAR LIQUIDS FOLLOW UP WITH DR. SMILEY OR UROLOGIST OF CHOICE NEXT WEEK--CALL ON MONDAY TO SCHEDULE AN APPOINTMENT Scripts Ciprofloxacin HCl (Ciprofloxacin HCl) 500 Mg Tablet 500 MG PO BID, #14 TAB Prov: MIRELLA MCKEON DO 01/02/21 Ondansetron (Ondansetron Odt) 8 Mg Tab.rapdis 8 MG PO Q6H, #15 TAB Prov: MIRELLA MCKEON DO 01/02/21 Ketorolac Tromethamine (Ketorolac Tromethamine) 10 Mg Tablet 10 MG PO Q6H for Pain, #15 TAB Prov: MIRELLA MCKEON DO 01/02/21 Hydrocodone/Acetaminophen (Hydrocodone-Acetamin 5-325 mg) 1 Each Tablet 1 EACH PO Q4-6 HOURS PRN for PAIN, #20 TAB Prov: MIRELLA MCKEON DO 01/02/21 Tamsulosin HCl (Flomax) 0.4 Mg Cap 0.4 MG PO DAILY, #10 CAP Prov: MIRELLA MCKEON DO 01/02/21 MIRELLA MCKEON DO January 02, 2021 00:44
[2021-01-02] MEDS ORDERED: TAMSULOSIN 0.4 MG (FLOMAX) CAP PO SCH (00:45)
[2021-01-02] MEDS ORDERED: LACTATED RINGERS 1,000 ML IV ONE (00:45)
[2021-01-02] MEDS ORDERED: fentaNYL INJ 100 MCG/2 ML AMP IVP STA (01:34)
[2021-01-02 01:39] LABS: BILIRUBIN,URINE NEGATIVE (NEGATIVE); CLARITY,URINE CLEAR; COLOR,URINE YELLOW; GLUCOSE, URINE (UA) NEGATIVE (NEGATIVE); KETONES,URINE NEGATIVE (NEGATIVE); LEUKOCYTE ESTERASE ,URINE TRACE (NEGATIVE); NITRITE,URINE NEGATIVE (NEGATIVE); PROTEIN,URINE NEGATIVE (NEGATIVE)
[2021-01-02 01:46] LABS: BACTERIA,URINE NEGATIVE /HPF; SQUAMOUS EPITHELIAL CELL,UR 0-2 /HPF; WBC,URINE RARE /HPF
[2021-01-02 01:50] LABS: AMPHETAMINE SCREEN, URINE NEGATIVE (NEGATIVE); BARBITURATE SCREEN URINE NEGATIVE (NEGATIVE); BENZODIAZEPINES SCREEN URINE NEGATIVE (NEGATIVE); CANNABINOID SCREEN, URINE NEGATIVE (NEGATIVE); COCAINE SCREEN URINE NEGATIVE (NEGATIVE); METHADONE STAT NEGATIVE (NEGATIVE); METHAMPHETAMINE SCREEN URINE S NEGATIVE (NEGATIVE); OPIATE SCREEN URINE NEGATIVE (NEGATIVE); OXYCODONE STAT NEGATIVE (NEGATIVE); PROPOXYPHENE STAT NEGATIVE (NEGATIVE); TRICYCLIC ANTIDEPRESSANTS SCRE NEGATIVE (NEGATIVE)
[2021-01-02 02:08] VITALS: BP 109/78
--- NOTE | 2021-01-02 07:21 | Diagnostic Imaging Report ---
INDICATION: Abdominal pain. Flank pain. COMPARISON: None FINDINGS: 2 supine radiographic views of the abdomen were obtained and demonstrate nondistended loops of small bowel. There is no large collection of free peritoneal air. Mild air and stool are seen scattered throughout the colon. No unexpected extraosseous calcifications or radiopaque foreign bodies are seen. Bony structures show no gross acute abnormalities. IMPRESSION: 1. Nonobstructed small bowel gas pattern. Dictated by: Dictated on workstation # [id number]
--- NOTE | 2021-01-02 07:44 | Diagnostic Imaging Report ---
PROCEDURE: CT urinary tract, rule out kidney stone. TECHNIQUE: Multiple contiguous axial images were obtained through the abdomen and pelvis without the use of intravenous contrast. Auto Exposure Controls were utilized during the CT exam to meet ALARA standards for radiation dose reduction. INDICATION: Flank pain. Suspected stone. CORRELATION STUDY: None. FINDINGS: LOWER THORAX: Clear. LIVER: Unremarkable. GALLBLADDER: Small gallstone. SPLEEN: Unremarkable. Small splenule. PANCREAS: Unremarkable. ADRENAL GLANDS: Unremarkable. KIDNEYS: 1 to 2 mm small stone near the left ureteral orifice with associated mild left hydroureter and hydronephrosis. Right kidney and collecting system unremarkable. ABDOMINAL AORTA: Unremarkable, nonaneurysmal. GASTROINTESTINAL TRACT: No obstruction or inflammation. Normal appendix. URINARY BLADDER: Unremarkable. REPRODUCTIVE: Unremarkable. OSSEOUS STRUCTURES: No acute abnormality. OTHER: None. IMPRESSION: 1. Small, 1 to 2 mm stone near the left UVJ with associated mild left-sided hydroureteronephrosis. Initial report was provided by [facility]. Dictated by: Dictated on workstation # [id number]
== END 2021-01-02 02:08 | disposition home or self-care (01) ==
LOC: EDUNIT# 22:16 → ER 22:17
DX: N13.2 Hydronephrosis with renal and ureteral calculous obstruction (principal); K21.9 Gastro-esophageal reflux disease without esophagitis; F17.210 Nicotine dependence, cigarettes, uncomplicated; Z79.899 Other long term (current) drug therapy
CPT/HCPCS: 36415; 74018; 74176; 80053; 80164; 80320; 82150; 83690; 85007; 85027

== ENCOUNTER 2021-11-07 11:51 | Emergency (ER) | payer OTHER, BC ==
[~2021-11-07] VITALS: Ht 185 cm; Wt 102.0 kg
[~2021-11-07 11:51] MED LIST changes: +ACHD5005 PO; +CIPR500T5 PO; +KETO10TA PO; +ONDA8TAB13 PO; +TMSL.4C PO
[2021-11-07] MEDS ORDERED: TETANUS,DIPTH,PERTUSS P/F (BOOSTRIX) 0.5 ML VIAL IM ONE (12:00)
--- NOTE | 2021-11-07 12:01 | ED Upper Extremity ---
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 Hardy is a 41 yo male that presents to ED today due to laceration of his L hand. He was using a hide trimmer with oscillating teeth about 10 minutes prior when his hand slipped and he cut what appears to be fingers 3-4 of the L hand. States it has been quite a while since his last tetanus shot. (LUCI[employer] MED STUDENT) Allergies and Home Medications Allergies Coded Allergies: Penicillins (Verified Allergy, Unknown, FROM CHILDHOOD, 03/31/20) Patient Home Medication List Home Medication List Reviewed: Yes (ERNESTO VALENTINE MD) Cetirizine HCl (Zyrtec) 10 Mg Capsule, 10 MG PO DAILY, (Reported) Entered as Reported by: LENA RICCI on 03/31/20 132 Ciprofloxacin HCl (Ciprofloxacin HCl) 500 Mg Tablet, 500 MG PO BID Prescribed by: MIRELLA MCKEON on 01/02/2143 Doxycycline Hyclate (Doxycycline Hyclate) 100 Mg Tablet, 100 MG PO BID Prescribed by: AJ PAYAN on 08/24/202057 Hydrocodone/Acetaminophen (Hydrocodone-Acetamin 5-325 mg) 1 Each Tablet, 1 EACH PO Q4-6 HOURS PRN for PAIN Prescribed by: MIRELLA MCKEON on 01/02/2143 Ketorolac Tromethamine (Ketorolac Tromethamine) 10 Mg Tablet, 10 MG PO Q6H Prescribed by: MIRELLA MCKEON on 01/02/2143 [place] 3 Polyunsat Fatty Acids (Fish Oil 1,000 mg Capsule) 1,000 Mg Cap, 1,000 MG PO DAILY, (Reported) Entered as Reported by: LENA RICCI on 03/31/20 1324 Ondansetron (Ondansetron Odt) 8 Mg Tab.rapdis, 8 MG PO Q6H Prescribed by: MIRELLA MCKEON on 01/02/2143 Pantoprazole Sodium (Pantoprazole Sodium) 40 Mg Tablet.dr, 40 MG PO BID, (Reported) Entered as Reported by: LENA RICCI on 08/20/19 1203 Sucralfate (Carafate) 1 Gm Tablet, 1 GM PO QID Prescribed by: JACOB BOSS on 08/27/19 1358 Sulfamethoxazole/Trimethoprim (Bactrim Ds Tablet) 1 Each Tablet, 1 EACH PO BID Prescribed by: ERNESTO JEAN on 11/07/21 1425 Tamsulosin HCl (Flomax) 0.4 Mg Cap, 0.4 MG PO DAILY Prescribed by: MIRELLA MCKEON on 01/02/21 0044 Review of Systems Constitutional: no symptoms reported EENTM: no symptoms reported Respiratory: no symptoms reported Cardiovascular: no symptoms reported Gastrointestinal: no symptoms reported Genitourinary: no symptoms reported Musculoskeletal: no symptoms reported Skin: see HPI Psychiatric/Neurological: No Symptoms Reported (ERNESTO VALENTINE MD) Past Hgenomg-Olhpzy-Ndqqvq Hx Immunizations Up To Date Tetanus Booster (TDap): Unknown (TERA EPSTEIN) Seasonal Allergies Seasonal Allergies: Yes (TERA EPSTEIN) Past Medical History Surgeries: Yes (BMT, SKIN BIOPSY) Ear Surgery, Vasectomy Respiratory: No Currently Using CPAP: No Currently Using BIPAP: No Cardiac: No Neurological: No Sexually Transmitted Disease: No HIV/AIDS: No Genitourinary: Yes (LOW TESTOSTERONE) Gastrointestinal: Yes Gastroesophageal Reflux Musculoskeletal: No Endocrine: Yes (LOW TESTOSTERONE) HEENT: Yes (READING GLASSES; S/P BMT'S) Chronic Ear Infection Loss of Vision: Denies Hearing Impairment: Denies Cancer: No Psychosocial: Yes PTSD Integumentary: No Blood Disorders: No Adverse Reaction/Blood Tranf: No (N/A) (TERA EPSTEIN) Physical Exam Vital Signs Vital Signs - First Documented 11/07/21 11:55 Temp 35.9 Pulse 120 Resp 20 B/P (MAP) 141/99 (113) (ERNESTO VALENTINE MD) Vital Signs Capillary Refill : (TERA EPSTEIN) Height, Weight, BMI Height: '" Weight: lbs. oz. kg; 28.00 BMI Method: General Appearance: WD/WN, no apparent distress Cardiovascular: normal peripheral pulses, regular rate, rhythm, no murmur Respiratory: chest non-tender, lungs clear, normal breath sounds Gastrointestinal: normal bowel sounds, non tender, soft Hand: Left (Cuts on fingers 3-4, no obvious bone injury. Sensation and motor function intact. There is a horseshoe shaped lac on the distal portion of middle finger with some adipose tissue protruding. There is a smaller laceration on ring finger) Neurologic/Psychiatric: alert, normal mood/affect, oriented x 3 Skin: normal color, warm/dry (TERA EPSTEIN MED STUDENT) Procedures/Interventions Wound Location: Upper Extremities Other Wound Location Left hand middle finger on the distal finger pad Wound Length (cm): 3 Wound's Depth, Shape: irregular, flap, sub Q Wound Explored: clean Irrigated w/ Saline (ccs): 100 Betadine Prep?: Yes Anesthesia: 1% Lidocaine Volume Anesthetic (ccs): 3 Suture: Prolene Suture Size: 5-0 Number of Sutures: 7 Layer Closure?: 1 Sterile Dressing Applied?: Yes Progress Digital block was performed by Tera Epstein MS 4. Additional local anesthetic was applied at the time of repair. Wound was cleaned with saline and chlorhexidine and irrigated. Betadine prep was applied. Wound was approximated in an interrupted fashion. Repair was complex as this was a irregular flap with very little skin tissue to work with. There was much adipose tissue bulging through the wound that required talking. Patient tolerated the procedure well. Wound Location: Upper Extremities Other Wound Location Finger pad of the left ring finger Wound Length (cm): 1.5 Wound's Depth, Shape: linear, irregular, sub Q Wound Explored: clean Irrigated w/ Saline (ccs): 100 Betadine Prep?: Yes Anesthesia: 1% Lidocaine Volume Anesthetic (ccs): 3 Suture Size: 5-0 Number of Sutures: 4 Layer Closure?: 1 Sterile Dressing Applied?: Yes Progress Digital block was performed by Tera Epstein MS 4. Wound was scrubbed with chlorhexidine and saline and irrigated. Betadine prep was applied. Wound was approximated by MS 4 with my supervision. Patient tolerated the procedure well. (ERNESTO VALENTINE MD) Progress/Results/Core Measures Results/Orders My Orders Orders - ERNESTO VALENTINE MD Dipht,Pertuss(Acell),Tet Adult (Boostrix (11/07/21 12:00) Finger(S) (11/07/21 12:01) (ERNESTO VALENTINE MD) Medications Given in ED Current Medications Medications Dose Ordered Sig/Enoc Route Start Time Stop Time Status Last Admin Dose Admin Diphtheria/ Tetanus/Acell Pertussis 0.5 ml ONCE ONCE IM 11/07/21 12:00 11/07/21 12:01 DC 11/07/21 12:13 0.5 ML (ERNESTO VALENTINE MD) Vital Signs/I&O 11/07/21 11/07/21 11:55 14:30 Temp 35.9 35.9 Pulse 120 100 Resp 20 18 B/P (MAP) 141/99 (113) 128/89 (ERNESTO VALENTINE MD) Progress Progress Note : Progress Note Tetanus shot was administered. Wounds were cleaned and irrigated with the assistance of Tera Epstein, MS 4 under my supervision. Antibiotics were prescribed due to the depth and nature of the wound. X-rays demonstrated no fracture or foreign body. (ERNESTO VALENTINE MD) Diagnostic Imaging Diagonstic Imaging: Xray Plain Films/CT/US/NM/MRI: hand Comments X-rays reviewed by me and report reviewed. See report below: NAME: BROOKS HARDY [facility] REC#: [id number] PT STATUS: REG ER : 1980 PHYSICIAN: ERNESTO VALENTINE MD ADMIT DATE: 11/07/21/ER Signed Date of Exam:11/07/21 FINGER(S) INDICATION: Left hand injury, pain 4th digit and 3rd finger. EXAMINATION: Left fingers on 11/07/2021. FINDINGS: There is a ring overlying the 4th proximal phalanx obscuring its evaluation. The remaining visualized osseous structures appear intact with no fractures identified. There are no dislocations. Soft tissue prominence is noted about the distal 4th and 3rd fingers, likely due to contusion or swelling. IMPRESSION: Soft tissue abnormalities with no underlying fractures identified. Dictated by: Dictated on workstation # [id number] Dict: 11/07/21 1215 Trans: 11/07/21 1244 [id number] Interpreted by: COLEMAN RAMEY MD Electronically signed by: COLEMAN RAMEY MD 11/07/21 1244 (ERNESTO VALENTINE MD) Departure Impression Primary Impression: Finger laceration Qualified Codes: S61.219A - Laceration without foreign body of unspecified finger without damage to nail, initial encounter Disposition: 01 HOME, SELF-CARE Condition: Improved Departure-Patient Inst. Decision time for Depature: 14:22 (ERNESTO VALENTINE MD) Referrals: NO,LOCAL PHYSICIAN (PCP/Family) Primary Care Physician Patient Instructions: Laceration Repair With Stitches (DC) Add. Discharge Instructions: Keep the wound clean and dry except for normal handwashing and showering. Keep the wound completely dry until this evening near bedtime. Cover wounds when active, sleeping, or in dirty environments. When you are awake and at rest you may leave them open to air. Do not submerge until sutures are removed. Monitor for signs of infection such as increasing swelling, increasing redness, puslike drainage, or fever. Return to care promptly if you notice the symptoms. Expect some oozing of blood and yellowish fluid over the next couple of days. If pat bleeding occurs, apply direct pressure by squeezing with your other hand and elevating for 5 to 10 minutes. Complete antibiotics as prescribed to prevent infection. Return in 9 or 10 days to have sutures removed. Call with questions or concerns. You may return at any time for a wound check if you are concerned about the healing. Scripts Sulfamethoxazole/Trimethoprim (Bactrim Ds Tablet) 1 Each Tablet 1 EACH PO BID, #10 TAB Prov: ERNESTO VALENTINE MD 11/07/21 Medical Student Attestation and Attending Note: I have personally interviewed and examined this patient along with Tera Epstein, MS 4. I have reviewed student documentation including history, physical, and assessments. I agree with the documentation except where otherwise noted. Exam: General: Alert, oriented, no acute distress, well developed HEENT: Normocephalic and atraumatic Extremities: Lacerations on the third and fourth finger of the left hand on the distal palmar aspect. The middle finger laceration has a narrow flap with much adipose tissue bulging through it and jagged edges with smaller flaps on the lateral aspect. The fourth finger laceration is more linear with adipose also bulging through the wound. Distal sensation intact. Neuropsych: Alert, oriented, no focal deficits Skin: Warm and dry without rashes, see above (ERNESTO VALENTINE MD) TERA EPSTEIN MED STUDENT Nov 07, 2021 12:01 ERNESTO VALENTINE MD Nov 07, 2021 14:25
--- NOTE | 2021-11-07 12:17 | Diagnostic Imaging Report ---
INDICATION: Left hand injury, pain 4th digit and 3rd finger. EXAMINATION: Left fingers on 11/07/2021. FINDINGS: There is a ring overlying the 4th proximal phalanx obscuring its evaluation. The remaining visualized osseous structures appear intact with no fractures identified. There are no dislocations. Soft tissue prominence is noted about the distal 4th and 3rd fingers, likely due to contusion or swelling. IMPRESSION: Soft tissue abnormalities with no underlying fractures identified. Dictated by: Dictated on workstation # [id number]
[2021-11-07] MEDS ORDERED: SULF1TAB38 PO (14:25)
[2021-11-07 14:30] VITALS: BP 128/89
== END 2021-11-07 14:33 | disposition home or self-care (01) ==
LOC: EDUNIT# 11:51 → ER 11:52
DX: S61.213A Laceration without foreign body of left middle finger without damage to nail, initial encounter (principal); S61.215A Laceration without foreign body of left ring finger without damage to nail, initial encounter; Z23 Encounter for immunization; W26.8XXA Contact with other sharp object(s), not elsewhere classified, initial encounter
CPT/HCPCS: 12001; 12032; 73140; 90715